=== PATIENT | male | born 1960 | race Caucasian/White ===

== ENCOUNTER → 2023-01-22 | Outpatient (CLI) | payer OTHER | LOC: COL.RAD 07:42 | DX: K82.4 Cholesterolosis of gallbladder (principal); K76.0 Fatty (change of) liver, not elsewhere classified; R74.8 Abnormal levels of other serum enzymes ==

== ENCOUNTER → 2023-08-15 | Outpatient (CLI) | payer BC | LOC: COL.RAD 06:49 | DX: K76.0 Fatty (change of) liver, not elsewhere classified (principal); K82.4 Cholesterolosis of gallbladder ==